=== PATIENT | female | born 1950 | race Caucasian/White ===

== ENCOUNTER 2017-12-24 12:39 | Emergency (ER) | payer MEDICARE, BC ==
[2017-12-24 12:59] LABS: BASOPHILS % 0.5 (0.0-1.5); EOSINOPHILS % 3.6 % (0.0-6.8); MEAN CORPUSCULAR HEMOGLOBIN 26.2 pg (28.0-34.0); MEAN CORPUSCULAR VOLUME 84.4 fl (80.0-100.0); MONOCYTES % 4.7 % (0.0-11.0); NEUTROPHILS # 6.1 # k/uL (1.4-7.7)
--- NOTE | 2017-12-24 13:06 | ED Physician Documentation ---
General Adult - HISTORIAN Historian: patient - HPI Stated Complaint: "Slurred Speech MANAGER WELLNESS" Chief Complaint: General Adult (slurred speach) Additional Information: 67yo white female who reported by a friend that she developed a blank stare, was having some slurred speech, lips became white and hands cold. Patient was able to answer questions appropriately. Episode lasted about 10 minutes. No precipitating factors noted. Patient does not related that she has been having any difficulties at time of admission to the ED. Does not remember or think that anything was wrong. No numbness, weakness, mental confusion noted. She does not relate that she had any slurred speech that she is aware of. Patient has not seen a medical provider for some time. Patient has a hx of HTN, was hospitalized for this in Nov. Recently saw Dr Catalan and had her medications adjusted. Timing: gone now - ROS CONST: no problems. denies: fever, weakness CVS/RESP: denies: chest pain, shortness of breath GI/: denies: abdominal pain, problems urinating, vomiting, nausea - PAST HX Past History: hypertension Other History: none Surgeries/Procedures: hysterectomy (partial), other (removal of FB in knee) Allergies/Adverse Reactions: Allergies Allergy/AdvReac Type Severity Reaction Status Date / Time amoxicillin Allergy Verified 12/24/17 12:49 Home Medications: Ambulatory Orders Medication Instructions Recorded Atorvastatin Calcium 40 mg PO DAILY 12/24/17 Carvedilol [Coreg] 12.5 mg PO DAILY 12/24/17 Furosemide [Lasix] 40 mg PO 714 12/24/17 amLODIPine BESYLATE [Norvasc] 5 mg PO DAILY 12/24/17 - SOCIAL HX Smoking History: non-smoker Alcohol Use: none Drug Use: none - FAMILY HX Family History: No - VITAL SIGNS Vital Signs: Vital Signs Temp Pulse Resp BP Pulse Ox 97 F L 58 L 18 158/62 94 12/24/17 12:40 12/24/17 12:40 12/24/17 12:40 12/24/17 12:40 12/24/17 12:40 - REVIEWED ASSESSMENTS Nursing Assessment Reviewed: Yes Vitals Reviewed: Yes Progress - Progress Progress: 13:41 Patient remains stable with no symptoms. - EKG/XRAY/CT EKG: NSR, no ST T wave changes Comments: normal ED Results Lab/Radiology - Lab Results Lab Results: Lab Results 12/24/17 12:50 WBC 9.20 K/ul K/ul (4.00-12.00) RBC 5.03 M/ul M/ul (3.90-5.20) Hgb 13.2 g/dL g/dL (12.0-16.0) Hct 42.4 % % (34.5-46.5) MCV 84.4 fl fl (80.0-100.0) MCH 26.2 pg L pg (28.0-34.0) MCHC 31.1 g/dL g/dL (30.0-36.0) RDW 13.8 % % (11.3-14.3) Plt Count 291 K/mm3 K/mm3 (130-400) Neut % (Auto) 67.1 % % (39.0-79.0) Lymph % (Auto) 22.8 % % (16.0-50.0) Parmer % (Auto) 4.7 % % (0.0-11.0) Eos % (Auto) 3.6 % % (0.0-6.8) Baso % (Auto) 0.5 (0.0-1.5) Neut # (Auto) 6.1 # k/uL # k/uL (1.4-7.7) Lymph # (Auto) 2.1 # k/uL # k/uL (0.6-4.0) Parmer # (Auto) 0.4 # k/uL # k/uL (0.0-0.9) Eos # (Auto) 0.3 # k/uL # k/uL (0.0-0.6) Baso # (Auto) 0.0 # k/uL # k/uL (0.0-0.5) Reactive Lymphs % 1.3 % % (0.0-5.0) Reactive Lymphs # 0.1 # k/uL # k/uL (0.0-0.8) - Radiology Radiology Impressions: Examination: CT head without contrast History: SLURRED SPEECH X 1 DAY; TIA (Hx) / SLURRED SPEECH; TIA (DICOM Hx) Comparison exam: None available Technique: Noncontrast head CT protocol. Findings: Ventricles and sulci are consistent for patient age. Cerebrocerebellar parenchyma demonstrates mild periventricular low attenuation consistent with small vessel disease. No evidence for parenchymal hemorrhage. No evidence for mass or mass effect. No midline shift. No extra axial fluid collections. Partial visualization of the paranasal sinuses, mastoid air cells, orbits, skull and scalp without gross irregularity. Impression: Mild age related changes. No acute parenchymal process. No hemorrhage. - Orders Orders: ED Orders Category Date Time Status Place IV Lock 1T Care 12/24/17 12:[address] BRAIN W/O CONTRAST Stat Exams 12/24/17 Ordered CBC/PLATELET/DIFF Routine Lab 12/24/17 Ordered CMP Routine Lab 12/24/17 Ordered EKG WITH COMPARISON Stat Ther 12/24/17 12:49 Ordered General Adult Physical Exam - PHYSICAL EXAM GENERAL APPEARANCE: no distress EENT: eye inspection normal, ENT inspection normal NECK: normal inspection, thyroid normal, supple. No: lymphadenopathy, stiff neck RESPIRATORY: no resp distress, chest non-tender, breath sounds normal. No: wheezes, rales, rhonchi CVS: reg rate & rhythm, heart sounds normal, equal pulses, no murmur ABDOMEN: soft, no organomegaly, normal bowel sounds, no abdominal bruit BACK: no CVA tenderness SKIN: warm/dry, normal color NEURO: oriented X3, CN's nml as tested, motor nml, sensation nml, mood/affect nml, cognition normal Discharge Clincal Impression: Transient mental status changes Referrals: Primary Doctor,No [Primary Care Provider] - 2 Days Additional Instructions: Continue with present medications. Take ASA 81mg once a day. Drink a lot of fluids. Follow-up with your primary care provider on tuesday as scheduled. If you have any further problems to call or return to the ED. Condition: Stable Disposition: 01 HOME, SELF-CARE Decision to Admit: NO Date of Decison to Admit: 12/24/17 Decision Time: 13:42
[2017-12-24 14:25] VITALS: BP 145/62
--- NOTE | 2017-12-24 14:57 | Diagnostic Imaging Report ---
JOHNY ORTA [facility] [address] [facility] [address] [place] [address]. [id number] Report Submission Date: Dec 24, 2017 1:35:15 PM LAUNCH MANAGER Patient Study Name: KARO HINOJOSA Date: Dec 24, 2017 1:08:30 PM LAUNCH MANAGER Modality Type: CT\SR Gender: F Description: CT HEAD W/O : 48 Institution: [facility] Physician: JOHNY ORTA Examination: CT head without contrast History: SLURRED SPEECH X 1 DAY; TIA (Hx) / SLURRED SPEECH; TIA (DICOM Hx) Comparison exam: None available Technique: Noncontrast head CT protocol. Findings: Ventricles and sulci are consistent for patient age. Cerebrocerebellar parenchyma demonstrates mild periventricular low attenuation consistent with small vessel disease. No evidence for parenchymal hemorrhage. No evidence for mass or mass effect. No midline shift. No extra axial fluid collections. Partial visualization of the paranasal sinuses, mastoid air cells, orbits, skull and scalp without gross irregularity. Impression: Mild age related changes. No acute parenchymal process. No hemorrhage. Electronically signed on Dec 24, 2017 1:35:15 PM LAUNCH MANAGER by: Krish MOY
== END 2017-12-24 14:24 | disposition home or self-care (01) ==
LOC: ED 12:39
DX: R40.4 Transient alteration of awareness (principal); I10 Essential (primary) hypertension
CPT/HCPCS: 70450; 80053; 85025; 99282; 99283; S1016